=== PATIENT | female | born 1975 | race Caucasian/White ===

== ENCOUNTER 2018-06-27 14:56 | Inpatient (IN) ==
[2018-06-27] MEDS ORDERED: NALOXONE 1 MG/1 ML - 2 ML IVP ONE (15:07)
[2018-06-27] MEDS ORDERED: ONDANSETRON 4 MG/2 ML VIAL IVP ONE (15:09)
[2018-06-27] MEDS ORDERED: NALOXONE 1 MG/1 ML - 2 ML ONE (15:09)
[2018-06-27] MEDS ORDERED: Sodium Chloride 0.9% 1,000 ML PRIMARY IV ONE ×2 (15:09)
--- NOTE | 2018-06-27 15:18 | PDOC ---
Altered Mental Status HPI - General Chief Complaint: Altered Mental Status Stated Complaint: UNRESPONSIVE, DT'S Date Seen by Provider: 06/27/18 Time Seen by Provider: 15:13 Source: POSITIVE: EMS Exam Limitations: POSITIVE: Clinical condition, Intoxication Nurse's Notes Reviewed & Considered: Yes - Record Incomplete EMS Report Reviewed & Considered: Verbal - History of Present Illness Initial Comments: This is a well-developed, well-nourished, 42-year-old female with altered mental status. EMS was summoned when daughter found her mother to be barely breathing and unresponsive. EMS arrived and the patient was smelling strongly of alcohol and combative. They were able to establish an IV and brought her in for evaluation. She receives 1 mg of Narcan here in the emergency room without effect. She has had at least one episode of vomiting with emesis on her shoulder. Further review of systems is unavailable because the patient's altered mental status. 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 Ability to Stand Similar Symptoms Previously: No Recent Care Received: REPORTS: Denies Any Prior Injuries Related to Current Complaint?: No - Patient Home Medications Home Medications: Home Medications Ibuprofen 400 mg PO Q4H PRN 03/02/15 HYDROcodone/APAP 5/325 Tab [[place] 5/325 Tab] 1 ea PO Q6H PRN #10 tab 08/08/16 - Patient Allergies Allergies/Adverse Reactions: Allergies 3 Allergy/AdvReac Type Severity Reaction Status Date / Time codeine AdvReac nausea Verified 06/27/18 15:41 oxycodone HCl [From Percocet] AdvReac nausea Verified 06/27/18 15:41 PAIN CONTRACT AdvReac IN 2012/ Uncoded 06/27/18 15:41 N/A NOW Past Medical History - heen HEENT History: Other (please comment) Additional HEENT History: TONSILLECTOMY Cardiovascular History: Denies History Respiratory History: Denies History Gastrointestinal History: Denies History Genitourinary History: Denies History Endocrine History: Denies History Additional Endocrine History: HX HYPOTHYROID RESOLVED AFTER Musculoskeletal History: Other (please comment) Prosthesis or Implant: No Additional Musculoskeletal History: HX FRACTURED RT WRIST Neurological History: Denies History Blood Disorders: Denies History Psychiatric History: Depression, ADHD, ADD History of Sexually Transmitted Diseases: No Cancer History: Denies History History of MDRO: No History of Other Communicable Diseases: No Alcohol Use: None In the Past 12 Months, Have Used or Abuse Any Substance: None Previous Surgical History: Yes Type / Date of Surgery: TONSILLECTOMY. BILAT OOPHORECTOMY Significant Family History: Diabetes, Heart disease, Hypertension ROS - Limitations ROS Limitations: Clinical Condition (Due to the patient's combativeness and altered mental status further review of systems is unavailable.) Altered Mental Physical Exam - General Appearance General Appearance: POSITIVE: Severe Distress, Uncooperative - HEENT HEENT: POSITIVE: Head Inspection Nml, Eyes Inspection Nml, Ears Inspection Nml, Nose Inspection Nml, Oral/Dental Inspect. Nml, Pharynx Inspect. Nml, PERRL, EOMI - Pupil Size Pupil Size: 4 mm: Bilateral - Neuro/Psych Neurological: POSITIVE: Confusion Cranial Nerves: POSITIVE: Other (Unable to obtain Cranial nerve evaluation) Cerebellar: POSITIVE: Other (Cerebellar evaluation is unavailable because the patient's unresponsiveness.) Reflexes: Patellar (R): 4+, Patellar (L): 4+, Radial (R): 4+, Radial (L): 4+ - Neck Neck: POSITIVE: Supple, Non Tender - Respiratory Respiratory: POSITIVE: No Respiratory Distress, Breath Sounds Normal - Cardiovascular CVS: POSITIVE: Heart Sounds Normal, Tachycardia Peripheral Pulses: Radial (R): 4+ - Abdomen Abdomen: Soft: (All Quadrants), Normal Bowel Sounds: (All Quadrants), Denies Tenderness: (All Quadrants), No Splenomegaly: (All Quadrants), No Hepatomegaly: (All Quadrants), No Guarding: (All Quadrants), No Rebound: (All Quadrants), No Palpable Pulse: (All Quadrants), No Palpabale Mass: (All Quadrants), No Distention: (All Quadrants), No Rigidity: (All Quadrants) - Skin Skin: POSITIVE: Normal for Race, No Rash, Warm, Dry - Extremities Extremity: Non-Tender: (All Extremities), Normal ROM: (All Extremities), Normal Inspection: (All Extremities), Pelvis Stable: (All Extremities) Altered Mental Status - Results Reviewed By Me Xrays/CTs/US Reviewed: Yes Discussed with Radiologist: Yes Lab Results Reviewed by Me: Yes CBC and BMP: 06/27/18 15:34 06/27/18 15:34 Lab Results:: Laboratory Results 3 06/27/18 06/27/18 06/27/18 15:34 15:34 15:34 WBC 4.86 RBC 4.26 Hgb 13.8 Hct 39.0 MCV 91.5 MCH 32.4 H MCHC 35.4 RDW Std Deviation 39.3 RDW Coeff of Sherrill 11.9 Plt Count 185 MPV 9.9 Immature Gran % (Auto) 0.4 Neut % (Auto) 64.8 Lymph % (Auto) 24.1 [place] % (Auto) 10.1 Eos % (Auto) 0.2 Baso % (Auto) 0.4 Immature Gran # (Auto) 0.02 Neut # (Auto) 3.15 Lymph # (Auto) 1.17 [place] # (Auto) 0.49 Eos # (Auto) 0.01 Baso # (Auto) 0.02 WBC Morphology Comment Normal morphology Plt Morphology Comment Normal morphology RBC Morph Comment Normal morphology PT 10.7 INR 1.04 D-Dimer 4.60 H VBG pH VBG pCO2 VBG HCO3 VBG Base Excess Sodium 119 L* Potassium 3.7 L Chloride 85 L Carbon Dioxide 14 L Anion Gap 20 BUN 4 L Creatinine 0.6 Estimated GFR > 60 BUN/Creatinine Ratio 6.66 Glucose 65 L Calculated Osmolality 242.0 L Lactic Acid Calcium 8.5 L Magnesium 1.3 L Total Bilirubin 0.4 AST 98 H ALT 59 H Alkaline Phosphatase 94 CK-MB (CK-2) Troponin I C-Reactive Protein < 0.5 NT-Pro-B Natriuret Pep 61.7 Total Protein 7.5 Albumin 4.3 Globulin 3.2 Albumin/Globulin Ratio 1.30 Salicylates < 1.0 Acetaminophen < 10.0 Serum Alcohol 68 H 3 06/27/18 06/27/18 06/27/18 15:34 15:34 15:36 WBC RBC Hgb Hct MCV MCH MCHC RDW Std Deviation RDW Coeff of Sherrill Plt Count MPV Immature Gran % (Auto) Neut % (Auto) Lymph % (Auto) [place] % (Auto) Eos % (Auto) Baso % (Auto) Immature Gran # (Auto) Neut # (Auto) Lymph # (Auto) [place] # (Auto) Eos # (Auto) Baso # (Auto) WBC Morphology Comment Plt Morphology Comment RBC Morph Comment PT INR D-Dimer VBG pH 7.42 VBG pCO2 19 L VBG HCO3 13 L VBG Base Excess -12 L Sodium Potassium Chloride Carbon Dioxide Anion Gap BUN Creatinine Estimated GFR BUN/Creatinine Ratio Glucose Calculated Osmolality Lactic Acid 6.6 H Calcium Magnesium Total Bilirubin AST ALT Alkaline Phosphatase CK-MB (CK-2) 0.99 Troponin I < 0.012 C-Reactive Protein NT-Pro-B Natriuret Pep Total Protein Albumin Globulin Albumin/Globulin Ratio Salicylates Acetaminophen Serum Alcohol - Patient's Progress Pain Medication Addressed: POSITIVE: Not Applicable Re-Examine Time:: 16:46 Status: POSITIVE: Improved Treatment: POSITIVE: Thiamine Antibiotics Given: No - Consult Consult (If Yes, Name of Consulting MD & Time Called): Yes (Dr. Joseph) Consulting MD will see pt:: [place] [facility] [place] Counseled: POSITIVE: Patient, Family, RE: Lab Results, RE: Radiology Results, RE : DX, RE: Need for F/U Patient Care Time - Estimated PCT Patient Care Time (In Minutes): 45 Vital Signs - VS Reviewed Vital Signs Reviewed: Yes Discharge Clinical Impression: Alcohol abuse, Alcohol intoxication, Hyponatremia, Hypokalemia, Hypomagnesemia , Hypochloremia Discharge Disposition: Admit to Inpatient Condition: Stable Follow Up With: NONE,NONE [Primary Care Provider] - Date Decision to Admit to Inpatient: 06/27/18 Time Decision to Admit to Inpatient: 16:41
[2018-06-27 15:36] LABS: BASOPHILS # (AUTO) 0.02 10*3/UL; BASOPHILS % (AUTO) 0.4 % (0-1); EOSINOPHILS # (AUTO) 0.01 10*3/UL; EOSINOPHILS % (AUTO) 0.2 % (0-8); Hemoglobin [HGB] 13.8 g/dL (12.0-16.0); LYMPHOCYTES # (AUTO) 1.17 10*3/uL; MEAN CORPUSCULAR HEMOGLOBIN 32.4 PG (27-31); MEAN CORPUSCULAR HGB CONC 35.4 g/dL (33-37); MEAN CORPUSCULAR VOLUME 91.5 FL (81-99); MEAN PLATELET VOLUME 9.9 FL (7.4-12.2); MONOCYTES # (AUTO) 0.49 10*3/UL (0.3-0.8); MONOCYTES % (AUTO) 10.1 % (5-15); NEUTROPHILS # (AUTO) 3.15 10*3/UL; NEUTROPHILS % (AUTO) 64.8 % (50-80); RED BLOOD COUNT 4.26 10^6/uL (4.20-5.40)
[2018-06-27 15:49] LABS: PLATELET MORPHOLOGY COMMENT NORMAL MORPHOLOGY (NORM); RBC MORPHOLOGY COMMENT NORMAL MORPHOLOGY (NORM); WBC MORPHOLOGY COMMENT NORMAL MORPHOLOGY (NORM)
[2018-06-27 15:50] LABS: BLOOD UREA NITROGEN 4 mg/dL (7-22); BUN/CREATININE RATIO 6.66 (6-20); SERUM ALBUMIN 4.3 g/dL (3.5-4.8)
[2018-06-27] MEDS ORDERED: LORazepam 2 MG/1 ML VIAL IVP ONE ×3 (15:58→16:57)
[2018-06-27 16:06] LABS: SALICYLATE < 1.0 mg/dl (0-20)
[2018-06-27 16:09] LABS: VENOUS PH 7.42 (7.32-7.42)
[2018-06-27] MEDS ORDERED: D5-1/2NS + 40mEq KCL 1,000 ML, Magnesium Sulfate 2gm (Premix) 50 ML with Multivitamin I... IV ONE ×5 (16:11)
[2018-06-27] MEDS ORDERED: THIAMINE IV ONE ×6 (16:30)
[2018-06-27] MEDS ORDERED: [UNRECOGNIZED DRUG - OTHER] IV ONE ×6 (16:30)
[2018-06-27] MEDS ORDERED: MULTIVITAMIN IV ONE ×6 (16:30)
[2018-06-27] MEDS ORDERED: D5 IV ONE ×6 (16:30)
--- NOTE | 2018-06-27 16:31 | DI ---
CT Head WO Contrast,06/27/2018 3:09 PM: Clinical History: Altered mental status. Previous Exam: None at this facility. Findings: Multiple helically acquired CT images are obtained through the brain without contrast, and demonstrat e normal, symmetric ventricles and other CSF containing spaces. There is no mass, hemorrhage or midli ne shift. The surrounding soft tissue and osseous structures are unremarkable. Intraorbital structure s are unremarkable. Impression: No acute intracranial pathology.
--- NOTE | 2018-06-27 16:41 | DI ---
AP CHEST X-RAY, 06/27/2018 3:09 PM : Clinical History: Acute status change. Aspiration. Previous Exam: 05/26/2009. Soft Tissues: No acute soft tissue or bony abnormality. Heart: Normal heart. Lungs: On this view, the patient took a shallow inspiration. No infiltrate or effusion. No evidence o f aspiration. Mediastinum: Normal mediastinum. Nodules: No pulmonary nodules. Reading: Normal chest x-ray for this shallow inspiratory effort.
[2018-06-27 18:02] LABS: BILIRUBIN,URINE NEGATIVE (NEG); CLARITY,URINE CLEAR (CLEAR); COLOR,URINE YELLOW (Y); GLUCOSE, URINE (UA) NEGATIVE (NEG); OCCULT BLOOD,URINE NEGATIVE (NEG); PH,URINE 5.5 (5.0-8.5); PROTEIN,URINE NEGATIVE (NEG); UROBILINOGEN,URINE 0.2 EU/dL (0.2)
[2018-06-27] MEDS ORDERED: MAGNESIUM 400 MG/5 ML - 30 ML (MILK OF MAGNESIA) PO PRN (18:04)
[2018-06-27] MEDS ORDERED: LIDOCAINE HCL 2 % 10 ML JELLY URO-JECT TOPICAL PRN (18:04)
[2018-06-27] MEDS ORDERED: MAG HYDROX/AL HYDROX/SIMETH 30 ML SUSP PO PRN (18:04)
[2018-06-27] MEDS ORDERED: LORazepam 1 mg tab (ETOH withdrawal) PO PRN (18:04)
[2018-06-27] MEDS ORDERED: ONDANSETRON 4 MG/2 ML VIAL IV PRN (18:04)
[2018-06-27] MEDS ORDERED: Loperamide Tab 2 MG TABLET PO PRN (18:04)
[2018-06-27] MEDS ORDERED: LIDOCAINE W/ SODIUM BICARB 0.5 ML SYR SUBD PRN (18:04)
[2018-06-27] MEDS ORDERED: Sodium Chloride 0.9% 1,000 ML PRIMARY IV SCH (18:15)
[2018-06-27] MEDS ORDERED: Ertapenem Inj 1 GM in Sodium Chloride 0.9% 100 ML IV SCH (18:15)
[2018-06-27 18:19] LABS: AMPHETAMINE SCREEN NEGATIVE (NEG); CANNABINOID SCREEN,URINE NEGATIVE (NEG); COCAINE SCREEN NEGATIVE (NEG); METHADONE URINE SCREEN NEGATIVE (NEG); METHAMPHETAMINES SCREEN,URINE NEGATIVE (NEG); OPIATE SCREEN,URINE NEGATIVE (NEG); URINE SAMPLE TYPE CLEAN CATCH URINE; URINE SPECIFIC GRAVITY - MAN 1.005
--- NOTE | 2018-06-27 18:21 | PDOC ---
HPI - History of Present Illness Date of Service: 06/27/18 Time of Service: 18:00 Chief Complaint: Altered mental status History of Present Illness: This is a 42 years old female with medical history significant for history of alcoholism who was brought to the hospital for evaluation as she was found unresponsive by her daughter. Apparently the patient per The was fine when he talked to her about 2 PM today. However his daughter called him crying at 2:30 PM as she was unresponsive so he advised her to call the medics and they brought her here. According to the ER note, the EMS found her smelling strongly of alcohol and she was combative when she was brought to the ER. She vomited once. In the ER she was combative so she was given Ativan, she was incontinent of urine. No meaningful information can be obtained from her but apparently she calmed down compared to when she was brought in. She had a CT of the head which was negative. Chemistry showed decreased sodium, increased lactate and decreased magnesium. She was given some NS and she was started also on banana bag and was admitted. By the time the patient came into the ICU she was awake but she was not making sense. Difficult to take history from her. She was able though to tell me her name. She does not know how did she end up here in the hospital. She can't answer other questions. The said that 2 or 3 weeks ago apparently she was incarcerated for to 3 days for child endangerment and was ordered not to drink and she is being going to the police station to check alcohol level however she continued to drink he said a lot but did not quantify how much maybe every other day. Past Medical History Medical History: 1. Alcohol abuse, per she never been in an inpatient facility. She was unable to be sober more than 2 days according to him. No other medical issues. Surgical History: Unobtainable Pertinent Family History: unobtainable Past Social History: drinks per , not sure how jarred, no drugs, no smoking Tobacco Use: Unknown If Ever Smoked In the Past 12 Months, Have Used or Abuse Any of the Following Substance: None Alcohol Use: Other (per she continued to drink, a lot every other day. No drugs. Does not smoke.) Medication / Allergies Home Medications: Home Medications 3 Medication Instructions Recorded Confirmed Type Ibuprofen 400 mg PO Q4H PRN 03/02/15 06/27/18 History HYDROcodone/APAP 5/325 Tab [[place] 1 ea PO Q6H PRN #10 tab 08/08/16 06/27/18 Rx 5/325 Tab] Allergies/Adverse Reactions: Allergies 3 Allergy/AdvReac Type Severity Reaction Status Date / Time codeine AdvReac nausea Verified 06/27/18 15:41 oxycodone HCl [From Percocet] AdvReac nausea Verified 06/27/18 15:41 PAIN CONTRACT AdvReac IN 2012/ Uncoded 06/27/18 15:41 N/A NOW Review of Systems - Review of Systems ROS Unobtainable: Due to Mental Status Exam - Vitals Vital Signs: Vital Signs Temperature 99.7 F Temperature Source Temporal Artery Scan Pulse Rate [Pulse Oximeter 108 Left] Pulse Rate 121 Respiratory Rate 22 Blood Pressure [Left Arm] 129/89 Blood Pressure 135/72 Pulse Ox 93 Oxygen Delivery Method Room Air - General Additional General Exam Details: Patient is arousable but sleepy. She was able to tell me her name but no other meaningful information can be obtained from her. - Head Head Exam: Normal Inspection - Eye Eye Exam: POSITIVE: Normal Appearance - ENT ENT Exam: POSITIVE: Normal Exam - Neck Neck Exam: Normal Inspection Additional Neck Exam Details: No neck stiffness - Respiratory Respiratory Exam: POSITIVE: Clear to Auscultation - Bilaterally - Cardiovascular Cardiovascular Exam: POSITIVE: RRR - GI/Abdominal GI/Abdominal Exam: POSITIVE: Normal Bowel Sounds, Non Tender, Non Distended, Soft, No Organomegaly - Rectal Rectal Exam: POSITIVE: Deferred - External Exam: POSITIVE: Deferred - Extremities Extremities Exam: POSITIVE: Normal Inspection - Back Back Exam: POSITIVE: Normal Inspection - Neurological Additional Neurological Exam Details: Sleepy but arousable. Moves all her extremities. Does not follow commands well. No evidence of focal deficit - Integumentary Integumentary Exam: POSITIVE: Normal Color Results - Labs CBC and BMP: 06/27/18 15:34 06/27/18 19:49 - Imaging Status: Report Reviewed by Me (CT head No acute intracranial pathology. Chest X ray Normal chest x-ray for this shallow inspiratory effort.) Assessment and Plan - Patient Problems (1) Alcohol intoxication Current Visit: Yes Status: Acute Comment: likely alcohol intoxication plus electrolyte abnormalities responsible for change in her mental status. will Provide supportive care. There is a risk of alcohol withdrawal so she was put on CIWA scale. Code(s): F10.929 - Alcohol use, unspecified with intoxication, unspecified (2) Hyponatremia Current Visit: Yes Status: Acute Comment: Probably secondary to alcohol, question vomiting also. She did receive some normal saline will continue with normal saline repeat her labs and then determine if we need to make changes to the rate of fluid and type of fluid. Duration is also unclear whether this is acute or chronic. Code(s): E87.1 - Hypo-osmolality and hyponatremia (3) Lactate blood increase Current Visit: Yes Status: Acute Comment: Blood culture was sent and she was given fluids taking into consideration the hyponatremia and then will start her empirically on antibiotics until we have culture result. Code(s): R79.89 - Other specified abnormal findings of blood chemistry
[2018-06-27 18:36] LABS: URINE SPECIFIC GRAVITY - MAN 1.005
[2018-06-27] MEDS: LORazepam Inj(ETOH withdrawal) 2 MG/ML VIAL IVP PRN ×3 (19:18→23:26)
[2018-06-27 20:05] LABS: BLOOD UREA NITROGEN 4 mg/dL (7-22); BUN/CREATININE RATIO 6.66 (6-20)
[2018-06-27] MEDS: D5W 1,000 ML PRIMARY IV SCH (21:00)
[2018-06-27] MEDS ORDERED: IBUPROFEN 400 MG TABLET PO PRN (22:37)
[2018-06-27] MEDS ORDERED: Vancomycin-PHA to Dose IV PRN (22:43)
[2018-06-27 22:44] LABS: BLOOD UREA NITROGEN 4 mg/dL (7-22); BUN/CREATININE RATIO 6.66 (6-20)
[2018-06-28 00:42] LABS: BLOOD UREA NITROGEN 4 mg/dL (7-22); BUN/CREATININE RATIO 5.71 (6-20)
[2018-06-28] MEDS ORDERED: DESMOPRESSIN ACETATE SUBCUT ONE (01:00)
[2018-06-28] MEDS: LORazepam Inj(ETOH withdrawal) 2 MG/ML VIAL IVP PRN ×2 (01:23→03:13)
[2018-06-28 03:01] LABS: BLOOD UREA NITROGEN 5 mg/dL (7-22); BUN/CREATININE RATIO 7.14 (6-20)
[2018-06-28] MEDS: D5W 1,000 ML PRIMARY IV SCH (03:30)
[2018-06-28] MEDS ORDERED: D5W 1,000 ML PRIMARY IV ONE (03:57)
[2018-06-28] MEDS ORDERED: Sodium Chloride 0.9% 50 ML ONE (04:18)
--- NOTE | 2018-06-28 04:19 | DCSUMMARY ---
Hospitalization Summary Admit Date: 06/27/2018 Discharge Date: 06/28/18 Hospital Course: Transfer diagnosis 1. Alcohol intoxication 2. Hyponatremia 3. Fever 4. Increased anion gap metabolic acidosis Hospital course This is a 42 years old female with medical history significant for history of alcoholism who was brought to the hospital for evaluation as she was found unresponsive by her daughter. Apparently the patient said she was fine when he talked to her about 2 PM today. However his daughter called him crying at 2:30 PM as she was unresponsive so he advised her to call the medics and they brought her to the hospital. According to the ER note, the EMS found her smelling strongly of alcohol and she was combative when she was brought to the ER. She vomited once. In the ER she was combative so she was given Ativan and she was incontinent of urine. No meaningful information can be obtained from her but apparently she calmed down compared to when she was brought in. She had a CT of the head which was negative. Chemistry showed decreased sodium , increased lactate and decreased magnesium and alcohol level of 68. She was given NS and she was started also on banana bag and was admitted. By the time the patient came to the ICU she was awake but she was still not making sense. it Was difficult to take history from her. She was able to tell me her name . She cannot answer other questions. said that 2 or 3 weeks ago apparently she was incarcerated for 2- 3 days for child endangerment and was ordered not to drink and she is being going to the police station to check alcohol level however she continued to drink and he said a lot but did not quantify how much but he said every other day. Exam she is was confused but arousable. No neck stiffness. CT of the head was negative. Chest x-ray was negative. We did repeat her sodium and went up to 130. I did speak with the eICU and they started managing her afterwards. She was on D5 water and then they increased it gradually up to 300 mils an hour. She did receive DDAVP. Her sodium remained however 131. She did have fever as high as 102.8 I started her because of the fever and elevated lactate after taking blood culture on empiric antibiotic with ertapenem and vancomycin. Because of the persistent elevation in the sodium within a short period of time the eICU suggested I speak with nephrology so I did speak with Dr. Thomson who suggested to give her a bolus of for D5 and DDAVP and also suggested transfer. I spoke with Dr. Briggs the ER physician and she agreed to take the patient the patient will be transferred. I did check on the patient again this morning and she is more with it compared to earlier she was able to tell me the day the date. She doesn't know how did she end up here in the hospital. Did explain to her that we will transfer her to [facility] expressed understandings. Laboratory Results 06/27/18 06/27/18 06/27/18 Range/Units 15:09 15:34 15:34 WBC 4.86 (4.8-10.8) 10^3/uL RBC 4.26 (4.20-5.40) 10^6/uL Hgb 13.8 (12.0-16.0) g/dL Hct 39.0 (37.0-47.0) % MCV 91.5 (81-99) FL MCH 32.4 H (27-31) PG MCHC 35.4 (33-37) g/dL RDW Std Deviation 39.3 (39-50) fL RDW Coeff of Sherrill 11.9 (11.5-14.5) % Plt Count 185 (140-350) 10*3/uL MPV 9.9 (7.4-12.2) FL Immature Gran % (Auto) 0.4 (0-5) % Neut % (Auto) 64.8 (50-80) % Lymph % (Auto) 24.1 (10-50) % [place] % (Auto) 10.1 (5-15) % Eos % (Auto) 0.2 (0-8) % Baso % (Auto) 0.4 (0-1) % Immature Gran # (Auto) 0.02 10*3/UL Neut # (Auto) 3.15 10*3/UL Lymph # (Auto) 1.17 10*3/uL [place] # (Auto) 0.49 (0.3-0.8) 10*3/UL Eos # (Auto) 0.01 10*3/UL Baso # (Auto) 0.02 10*3/UL WBC Morphology Comment Normal morphology (NORM) Plt Morphology Comment Normal morphology (NORM) RBC Morph Comment Normal morphology (NORM) PT 10.7 (9.7-11.4) secs INR 1.04 (0.00-5.90) N/A D-Dimer 4.60 H (0.00-0.59) mg/L VBG pH (7.32-7.42) VBG pCO2 (45-55) mmHg VBG HCO3 (22-26) mmol/L VBG Base Excess (-2-2) MMOL/L Sodium (135-145) meq/L Potassium (3.8-5.2) meq/L Chloride (98-112) meq/L Carbon Dioxide (23-33) meq/L Anion Gap (5-20) BUN (7-22) mg/dL Creatinine (0.50-1.20) mg/dL Estimated GFR (>60 ml/min/1.73m(2)) BUN/Creatinine Ratio (6-20) Glucose (78-110) mg/dL Calculated Osmolality (267-292) mOsm/kg Lactic Acid (0.70-2.10) MMOL/L Calcium (8.7-10.7) mg/dL Magnesium (1.6-2.4) mg/dL Total Bilirubin (0.3-1.2) mg/dL AST (8-39) IU/L ALT (9-52) IU/L Alkaline Phosphatase (38-126) IU/L CK-MB (CK-2) (0.00-5.00) NG/ML Troponin I (< 0.040) ng/mL C-Reactive Protein (0.0-0.9) mg/dL NT-Pro-B Natriuret Pep (0-125) PG/ML Total Protein (6.1-8.0) g/dL Albumin (3.5-4.8) g/dL Globulin (2.50-4.10) g/dL Albumin/Globulin Ratio (1.3-2.0) mg/g TSH (0.2700-4.2000) uIU/mL Ur Collection Type Clean catch urine Urine Color Yellow (Y) Urine Clarity Clear (CLEAR) Urine pH 5.5 (5.0-8.5) Ur Specific [place] <=1.005 (1.005-1.030) U Specif Grav (Refrac) 1.005 Urine Protein Negative (NEG) mg/dl Urine Glucose (UA) Negative (NEG) mg/dL Urine Ketones Negative (NEG) Urine Occult Blood Negative (NEG) Urine Nitrate Negative (NEG) Urine Bilirubin Negative (NEG) Urine Urobilinogen 0.2 (0.2) EU/dL Ur Leukocyte Esterase Negative (NEG) Ur Culture Indicated? Culture not set Urine HCG, Qual Salicylates (0-20) mg/dl Urine Opiates Screen Negative (NEG) Ur Buprenorphine Negative (NEG) Ur Oxycodone Screen Negative (NEG) Urine Methadone Screen Negative (NEG) Ur Propoxyphene Screen Negative (NEG) Acetaminophen (0-30) ug/mL Barbiturate Screen Negative (NEG) U Tricyclic Antidepress Negative (NEG) Phencyclidine Screen Negative (NEG) Amphetamines Screen Negative (NEG) U Methamphetamines Scrn Negative (NEG) Benzodiazepines Screen Negative (NEG) Cocaine Screen Negative (NEG) U Marijuana (THC) Screen Negative (NEG) Serum Alcohol (0-10) mg/dL 06/27/18 06/27/18 06/27/18 Range/Units 15:34 15:34 15:34 WBC (4.8-10.8) 10^3/uL RBC (4.20-5.40) 10^6/uL Hgb (12.0-16.0) g/dL Hct (37.0-47.0) % MCV (81-99) FL MCH (27-31) PG MCHC (33-37) g/dL RDW Std Deviation (39-50) fL RDW Coeff of Sherrill (11.5-14.5) % Plt Count (140-350) 10*3/uL MPV (7.4-12.2) FL Immature Gran % (Auto) (0-5) % Neut % (Auto) (50-80) % Lymph % (Auto) (10-50) % [place] % (Auto) (5-15) % Eos % (Auto) (0-8) % Baso % (Auto) (0-1) % Immature Gran # (Auto) 10*3/UL Neut # (Auto) 10*3/UL Lymph # (Auto) 10*3/uL [place] # (Auto) (0.3-0.8) 10*3/UL Eos # (Auto) 10*3/UL Baso # (Auto) 10*3/UL WBC Morphology Comment (NORM) Plt Morphology Comment (NORM) RBC Morph Comment (NORM) PT (9.7-11.4) secs INR (0.00-5.90) N/A D-Dimer (0.00-0.59) mg/L VBG pH (7.32-7.42) VBG pCO2 (45-55) mmHg VBG HCO3 (22-26) mmol/L VBG Base Excess (-2-2) MMOL/L Sodium 119 L* (135-145) meq/L Potassium 3.7 L (3.8-5.2) meq/L Chloride 85 L (98-112) meq/L Carbon Dioxide 14 L (23-33) meq/L Anion Gap 20 (5-20) BUN 4 L (7-22) mg/dL Creatinine 0.6 (0.50-1.20) mg/dL Estimated GFR > 60 (>60 ml/min/1.73m(2)) BUN/Creatinine Ratio 6.66 (6-20) Glucose 65 L (78-110) mg/dL Calculated Osmolality 242.0 L (267-292) mOsm/kg Lactic Acid 6.6 H (0.70-2.10) MMOL/L Calcium 8.5 L (8.7-10.7) mg/dL Magnesium 1.3 L (1.6-2.4) mg/dL Total Bilirubin 0.4 (0.3-1.2) mg/dL AST 98 H (8-39) IU/L ALT 59 H (9-52) IU/L Alkaline Phosphatase 94 (38-126) IU/L CK-MB (CK-2) 0.99 (0.00-5.00) NG/ML Troponin I < 0.012 (< 0.040) ng/mL C-Reactive Protein < 0.5 (0.0-0.9) mg/dL NT-Pro-B Natriuret Pep 61.7 (0-125) PG/ML Total Protein 7.5 (6.1-8.0) g/dL Albumin 4.3 (3.5-4.8) g/dL Globulin 3.2 (2.50-4.10) g/dL Albumin/Globulin Ratio 1.30 (1.3-2.0) mg/g TSH (0.2700-4.2000) uIU/mL Ur Collection Type Urine Color (Y) Urine Clarity (CLEAR) Urine pH (5.0-8.5) Ur Specific [place] (1.005-1.030) U Specif Grav (Refrac) Urine Protein (NEG) mg/dl Urine Glucose (UA) (NEG) mg/dL Urine Ketones (NEG) Urine Occult Blood (NEG) Urine Nitrate (NEG) Urine Bilirubin (NEG) Urine Urobilinogen (0.2) EU/dL Ur Leukocyte Esterase (NEG) Ur Culture Indicated? Urine HCG, Qual Salicylates < 1.0 (0-20) mg/dl Urine Opiates Screen (NEG) Ur Buprenorphine (NEG) Ur Oxycodone Screen (NEG) Urine Methadone Screen (NEG) Ur Propoxyphene Screen (NEG) Acetaminophen < 10.0 (0-30) ug/mL Barbiturate Screen (NEG) U Tricyclic Antidepress (NEG) Phencyclidine Screen (NEG) Amphetamines Screen (NEG) U Methamphetamines Scrn (NEG) Benzodiazepines Screen (NEG) Cocaine Screen (NEG) U Marijuana (THC) Screen (NEG) Serum Alcohol 68 H (0-10) mg/dL 06/27/18 06/27/18 06/27/18 Range/Units 15:34 15:36 18:00 WBC (4.8-10.8) 10^3/uL RBC (4.20-5.40) 10^6/uL Hgb (12.0-16.0) g/dL Hct (37.0-47.0) % MCV (81-99) FL MCH (27-31) PG MCHC (33-37) g/dL RDW Std Deviation (39-50) fL RDW Coeff of Sherrill (11.5-14.5) % Plt Count (140-350) 10*3/uL MPV (7.4-12.2) FL Immature Gran % (Auto) (0-5) % Neut % (Auto) (50-80) % Lymph % (Auto) (10-50) % [place] % (Auto) (5-15) % Eos % (Auto) (0-8) % Baso % (Auto) (0-1) % Immature Gran # (Auto) 10*3/UL Neut # (Auto) 10*3/UL Lymph # (Auto) 10*3/uL [place] # (Auto) (0.3-0.8) 10*3/UL Eos # (Auto) 10*3/UL Baso # (Auto) 10*3/UL WBC Morphology Comment (NORM) Plt Morphology Comment (NORM) RBC Morph Comment (NORM) PT (9.7-11.4) secs INR (0.00-5.90) N/A D-Dimer (0.00-0.59) mg/L VBG pH 7.42 (7.32-7.42) VBG pCO2 19 L (45-55) mmHg VBG HCO3 13 L (22-26) mmol/L VBG Base Excess -12 L (-2-2) MMOL/L Sodium (135-145) meq/L Potassium (3.8-5.2) meq/L Chloride (98-112) meq/L Carbon Dioxide (23-33) meq/L Anion Gap (5-20) BUN (7-22) mg/dL Creatinine (0.50-1.20) mg/dL Estimated GFR (>60 ml/min/1.73m(2)) BUN/Creatinine Ratio (6-20) Glucose (78-110) mg/dL Calculated Osmolality (267-292) mOsm/kg Lactic Acid (0.70-2.10) MMOL/L Calcium (8.7-10.7) mg/dL Magnesium (1.6-2.4) mg/dL Total Bilirubin (0.3-1.2) mg/dL AST (8-39) IU/L ALT (9-52) IU/L Alkaline Phosphatase (38-126) IU/L CK-MB (CK-2) (0.00-5.00) NG/ML Troponin I (< 0.040) ng/mL C-Reactive Protein (0.0-0.9) mg/dL NT-Pro-B Natriuret Pep (0-125) PG/ML Total Protein (6.1-8.0) g/dL Albumin (3.5-4.8) g/dL Globulin (2.50-4.10) g/dL Albumin/Globulin Ratio (1.3-2.0) mg/g TSH 2.78 (0.2700-4.2000) uIU/mL Ur Collection Type Urine Color (Y) Urine Clarity (CLEAR) Urine pH (5.0-8.5) Ur Specific [place] (1.005-1.030) U Specif Grav (Refrac) 1.005 Urine Protein (NEG) mg/dl Urine Glucose (UA) (NEG) mg/dL Urine Ketones (NEG) Urine Occult Blood (NEG) Urine Nitrate (NEG) Urine Bilirubin (NEG) Urine Urobilinogen (0.2) EU/dL Ur Leukocyte Esterase (NEG) Ur Culture Indicated? Urine HCG, Qual Negative Salicylates (0-20) mg/dl Urine Opiates Screen (NEG) Ur Buprenorphine (NEG) Ur Oxycodone Screen (NEG) Urine Methadone Screen (NEG) Ur Propoxyphene Screen (NEG) Acetaminophen (0-30) ug/mL Barbiturate Screen (NEG) U Tricyclic Antidepress (NEG) Phencyclidine Screen (NEG) Amphetamines Screen (NEG) U Methamphetamines Scrn (NEG) Benzodiazepines Screen (NEG) Cocaine Screen (NEG) U Marijuana (THC) Screen (NEG) Serum Alcohol (0-10) mg/dL 06/27/18 06/27/18 06/27/18 Range/Units 19:49 19:49 19:49 WBC (4.8-10.8) 10^3/uL RBC (4.20-5.40) 10^6/uL Hgb (12.0-16.0) g/dL Hct (37.0-47.0) % MCV (81-99) FL MCH (27-31) PG MCHC (33-37) g/dL RDW Std Deviation (39-50) fL RDW Coeff of Sherrill (11.5-14.5) % Plt Count (140-350) 10*3/uL MPV (7.4-12.2) FL Immature Gran % (Auto) (0-5) % Neut % (Auto) (50-80) % Lymph % (Auto) (10-50) % [place] % (Auto) (5-15) % Eos % (Auto) (0-8) % Baso % (Auto) (0-1) % Immature Gran # (Auto) 10*3/UL Neut # (Auto) 10*3/UL Lymph # (Auto) 10*3/uL [place] # (Auto) (0.3-0.8) 10*3/UL Eos # (Auto) 10*3/UL Baso # (Auto) 10*3/UL WBC Morphology Comment (NORM) Plt Morphology Comment (NORM) RBC Morph Comment (NORM) PT (9.7-11.4) secs INR (0.00-5.90) N/A D-Dimer (0.00-0.59) mg/L VBG pH (7.32-7.42) VBG pCO2 (45-55) mmHg VBG HCO3 (22-26) mmol/L VBG Base Excess (-2-2) MMOL/L Sodium 130 L D (135-145) meq/L Potassium 3.8 (3.8-5.2) meq/L Chloride 91 L (98-112) meq/L Carbon Dioxide 26 (23-33) meq/L Anion Gap 13 (5-20) BUN 4 L (7-22) mg/dL Creatinine 0.6 (0.50-1.20) mg/dL Estimated GFR > 60 (>60 ml/min/1.73m(2)) BUN/Creatinine Ratio 6.66 (6-20) Glucose 73 L (78-110) mg/dL Calculated Osmolality 265.0 L (267-292) mOsm/kg Lactic Acid 2.1 (0.70-2.10) MMOL/L Calcium 8.8 (8.7-10.7) mg/dL Magnesium 1.7 (1.6-2.4) mg/dL Total Bilirubin (0.3-1.2) mg/dL AST (8-39) IU/L ALT (9-52) IU/L Alkaline Phosphatase (38-126) IU/L CK-MB (CK-2) (0.00-5.00) NG/ML Troponin I (< 0.040) ng/mL C-Reactive Protein (0.0-0.9) mg/dL NT-Pro-B Natriuret Pep (0-125) PG/ML Total Protein (6.1-8.0) g/dL Albumin (3.5-4.8) g/dL Globulin (2.50-4.10) g/dL Albumin/Globulin Ratio (1.3-2.0) mg/g TSH (0.2700-4.2000) uIU/mL Ur Collection Type Urine Color (Y) Urine Clarity (CLEAR) Urine pH (5.0-8.5) Ur Specific [place] (1.005-1.030) U Specif Grav (Refrac) Urine Protein (NEG) mg/dl Urine Glucose (UA) (NEG) mg/dL Urine Ketones (NEG) Urine Occult Blood (NEG) Urine Nitrate (NEG) Urine Bilirubin (NEG) Urine Urobilinogen (0.2) EU/dL Ur Leukocyte Esterase (NEG) Ur Culture Indicated? Urine HCG, Qual Salicylates (0-20) mg/dl Urine Opiates Screen (NEG) Ur Buprenorphine (NEG) Ur Oxycodone Screen (NEG) Urine Methadone Screen (NEG) Ur Propoxyphene Screen (NEG) Acetaminophen (0-30) ug/mL Barbiturate Screen (NEG) U Tricyclic Antidepress (NEG) Phencyclidine Screen (NEG) Amphetamines Screen (NEG) U Methamphetamines Scrn (NEG) Benzodiazepines Screen (NEG) Cocaine Screen (NEG) U Marijuana (THC) Screen (NEG) Serum Alcohol (0-10) mg/dL 06/27/18 06/28/18 06/28/18 Range/Units 22:30 00:30 02:25 WBC (4.8-10.8) 10^3/uL RBC (4.20-5.40) 10^6/uL Hgb (12.0-16.0) g/dL Hct (37.0-47.0) % MCV (81-99) FL MCH (27-31) PG MCHC (33-37) g/dL RDW Std Deviation (39-50) fL RDW Coeff of Sherrill (11.5-14.5) % Plt Count (140-350) 10*3/uL MPV (7.4-12.2) FL Immature Gran % (Auto) (0-5) % Neut % (Auto) (50-80) % Lymph % (Auto) (10-50) % [place] % (Auto) (5-15) % Eos % (Auto) (0-8) % Baso % (Auto) (0-1) % Immature Gran # (Auto) 10*3/UL Neut # (Auto) 10*3/UL Lymph # (Auto) 10*3/uL [place] # (Auto) (0.3-0.8) 10*3/UL Eos # (Auto) 10*3/UL Baso # (Auto) 10*3/UL WBC Morphology Comment (NORM) Plt Morphology Comment (NORM) RBC Morph Comment (NORM) PT (9.7-11.4) secs INR (0.00-5.90) N/A D-Dimer (0.00-0.59) mg/L VBG pH (7.32-7.42) VBG pCO2 (45-55) mmHg VBG HCO3 (22-26) mmol/L VBG Base Excess (-2-2) MMOL/L Sodium 130 L 131 L 131 L (135-145) meq/L Potassium 3.9 4.1 3.7 L (3.8-5.2) meq/L Chloride 96 L 98 99 (98-112) meq/L Carbon Dioxide 25 24 25 (23-33) meq/L Anion Gap 9 9 7 (5-20) BUN 4 L 4 L 5 L (7-22) mg/dL Creatinine 0.6 0.7 0.7 (0.50-1.20) mg/dL Estimated GFR > 60 > 60 > 60 (>60 ml/min/1.73m(2)) BUN/Creatinine Ratio 6.66 5.71 L 7.14 (6-20) Glucose 93 96 115 H (78-110) mg/dL Calculated Osmolality 266.0 L 268.0 269.0 (267-292) mOsm/kg Lactic Acid (0.70-2.10) MMOL/L Calcium 8.6 L 8.6 L 8.2 L (8.7-10.7) mg/dL Magnesium (1.6-2.4) mg/dL Total Bilirubin (0.3-1.2) mg/dL AST (8-39) IU/L ALT (9-52) IU/L Alkaline Phosphatase (38-126) IU/L CK-MB (CK-2) (0.00-5.00) NG/ML Troponin I (< 0.040) ng/mL C-Reactive Protein (0.0-0.9) mg/dL NT-Pro-B Natriuret Pep (0-125) PG/ML Total Protein (6.1-8.0) g/dL Albumin (3.5-4.8) g/dL Globulin (2.50-4.10) g/dL Albumin/Globulin Ratio (1.3-2.0) mg/g TSH (0.2700-4.2000) uIU/mL Ur Collection Type Urine Color (Y) Urine Clarity (CLEAR) Urine pH (5.0-8.5) Ur Specific [place] (1.005-1.030) U Specif Grav (Refrac) Urine Protein (NEG) mg/dl Urine Glucose (UA) (NEG) mg/dL Urine Ketones (NEG) Urine Occult Blood (NEG) Urine Nitrate (NEG) Urine Bilirubin (NEG) Urine Urobilinogen (0.2) EU/dL Ur Leukocyte Esterase (NEG) Ur Culture Indicated? Urine HCG, Qual Salicylates (0-20) mg/dl Urine Opiates Screen (NEG) Ur Buprenorphine (NEG) Ur Oxycodone Screen (NEG) Urine Methadone Screen (NEG) Ur Propoxyphene Screen (NEG) Acetaminophen (0-30) ug/mL Barbiturate Screen (NEG) U Tricyclic Antidepress (NEG) Phencyclidine Screen (NEG) Amphetamines Screen (NEG) U Methamphetamines Scrn (NEG) Benzodiazepines Screen (NEG) Cocaine Screen (NEG) U Marijuana (THC) Screen (NEG) Serum Alcohol (0-10) mg/dL Medications Active Medications Al Hydroxide/Mg Hydroxide (Mylanta Liquid) 30 ml PO Q2H PRN PRN Reason: GI Upset Sodium Chloride (Normal Saline 0.9%) 25 mls @ 200 mls/hr IV .Post Infusion PRN PRN Reason: No Primary IV for Flush ONLY Ertapenem 1 gm/ Sodium (Chloride) 100 mls @ 200 mls/hr IV Q24H [facility] Last Admin: 06/27/18 19:27 Dose: 200 mls/hr Dextrose (Dextrose 5%-Water) 1,000 mls @ 200 mls/hr PRIMARY IV .Q5H [facility] Last Admin: 06/28/18 03:30 Dose: 300 mls/hr Vancomycin HCl 1.5 gm/ Sodium (Chloride) 500 mls @ 333.333 mls/hr IV Q12H [facility] Last Admin: 06/27/18 23:49 Dose: 333.333 mls/hr Dextrose (Dextrose 5%-Water) 1,000 mls @ 999 mls/hr PRIMARY IV .Q1H1M ONE Stop: 06/28/18 04:57 Last Admin: 06/28/18 04:15 Dose: 999 mls/hr Ibuprofen (Motrin) 400 mg PO Q6H PRN PRN Reason: FEVER >101 Last Admin: 06/28/18 00:31 Dose: 400 mg Lidocaine HCl (Xylocaine Uro-Ject 2%) 10 ml TOPICAL ONCE PRN PRN Reason: Discomfort catheter insertion Lidocaine HCl (Lidocaine Buffered Inj) 0.5 ml SUBD ONCE PRN PRN Reason: IV Starts Loperamide HCl (Imodium) 2 - 4 mg PO .See Instructions PRN PRN Reason: Loose Stool Lorazepam (Ativan Tab(Etoh Withdrawal)) 1 - 4 mg PO .PER CIWA-AR PRN PRN Reason: CIWA-Ar >8 Lorazepam (Ativan Inj (Etoh Withdrawal)) 1 - 4 mg IVP .PER CIWA-AR PRN PRN Reason: CIWA-Ar score >8 Last Admin: 06/28/18 03:13 Dose: 1 mg Magnesium Hydroxide (Milk Of Magnesia Susp) 30 ml PO Q12H PRN PRN Reason: Constipation Multivitamins Therapeutic (Thera Tab) 1 tab PO DAILY [facility] Non-Formulary Medication (Pharmacy To Dose Vancomycin) 1 each IV ONCE PRN PRN Reason: Per Protocol Ondansetron HCl (Zofran Inj) 4 - 8 mg IV Q6H PRN PRN Reason: NAUSEA / VOMITING Pantoprazole Sodium (Protonix Inj) 40 mg IVP DAILY [facility] Thiamine HCl (Vitamin B-1) 100 mg PO DAILY [facility] Follow-up per [facility] post discharge. Exam - Vitals Vital Signs: Vital Signs Temperature 100.9 F Temperature Source Axillary Pulse Rate [Pulse Oximeter 97 Left] Pulse Rate 98 Respiratory Rate 20 Blood Pressure [Right Arm] 132/104 Blood Pressure [Left Arm] 90/49 Blood Pressure 90/49 Pulse Ox 97 Oxygen Flow Rate 2 Oxygen Delivery Method Nasal Cannula Height 5 ft 6 in Weight 159 lb 3.2 oz - General General Appearance: No Acute Distress, Cooperative - Head Head Exam: Normal Inspection - Eye Eye Exam: POSITIVE: Normal Appearance - ENT ENT Exam: POSITIVE: Normal Exam - Neck Additional Neck Exam Details: No Neck stiffness - Respiratory Respiratory Exam: POSITIVE: Clear to Auscultation - Bilaterally - Cardiovascular Cardiovascular Exam: POSITIVE: RRR - GI/Abdominal GI/Abdominal Exam: POSITIVE: Normal Bowel Sounds, Non Tender, Non Distended, Soft, No Organomegaly - Rectal Rectal Exam: POSITIVE: Deferred - External Exam: POSITIVE: Deferred - Extremities Extremities Exam: POSITIVE: Normal Inspection - Neurological Additional Neurological Exam Details: She is sleepy but arousable, she knows the day and date. She doesn't know how did she end up here in the hospital she thought that her parents brought her here. She is more with it today. - Psychiatric Psychiatric Exam: POSITIVE: Normal Affect Patient Problems - Patient Problem List (1) Alcohol intoxication Status: Acute Code(s): F10.929 - Alcohol use, unspecified with intoxication, unspecified Category: Medical (2) Hyponatremia Status: Acute Code(s): E87.1 - Hypo-osmolality and hyponatremia Category: Medical (3) Lactate blood increase Status: Acute Code(s): R79.89 - Other specified abnormal findings of blood chemistry Category: Medical
[2018-06-28 05:14] LABS: BASOPHILS # (AUTO) 0.01 10*3/UL; BASOPHILS % (AUTO) 0.3 % (0-1); EOSINOPHILS # (AUTO) 0.01 10*3/UL; EOSINOPHILS % (AUTO) 0.3 % (0-8); Hematocrit [HCT] 37.2 % (37.0-47.0); Hemoglobin [HGB] 12.7 g/dL (12.0-16.0); LYMPHOCYTES # (AUTO) 0.97 10*3/uL; MEAN CORPUSCULAR HEMOGLOBIN 32.1 PG (27-31); MEAN CORPUSCULAR HGB CONC 34.1 g/dL (33-37); MEAN CORPUSCULAR VOLUME 93.9 FL (81-99); MEAN PLATELET VOLUME 10.5 FL (7.4-12.2); MONOCYTES % (AUTO) 12.9 % (5-15); NEUTROPHILS # (AUTO) 2.38 10*3/UL; NEUTROPHILS % (AUTO) 61.4 % (50-80); RED BLOOD COUNT 3.96 10^6/uL (4.20-5.40)
[2018-06-28 05:19] VITALS: BP 92/59; RESP 18; TEMP 99.4; O2SAT 95
[2018-06-28 05:33] LABS: BLOOD UREA NITROGEN 5 mg/dL (7-22); BUN/CREATININE RATIO 7.14 (6-20); SERUM ALBUMIN 3.4 g/dL (3.5-4.8)
[2018-06-28 06:44] LABS: PLATELET MORPHOLOGY COMMENT NORMAL MORPHOLOGY (NORM); RBC MORPHOLOGY COMMENT SEE COMMENTS (NORM); WBC MORPHOLOGY COMMENT NORMAL MORPHOLOGY (NORM)
[2018-06-28] MEDS ORDERED: PANTOPRAZOLE IV 40 MG VIAL IVP SCH (09:00)
[2018-06-28] MEDS ORDERED: Multivitamin Tab 1 TAB PO SCH (09:00)
[2018-06-28] MEDS ORDERED: Thiamine Tab 100 MG TAB PO SCH (09:00)
== END 2018-06-28 05:55 | disposition short-term general hospital (02) | DRG 948 ==
LOC: ER 14:56 → ICU 17:32
PROVIDERS: ADMIT Internal Medicine; ATTEND Internal Medicine